=== PATIENT | female | born 1960 | race Caucasian/White ===

== ENCOUNTER 2018-01-31 19:31 | Emergency (ER) | payer OTHER ==
[2018-01-31 19:45] VITALS: BP 162/90
== END 2018-01-31 22:10 | disposition left against medical advice (07) ==
LOC: ER 19:31
DX: Z53.21 Procedure and treatment not carried out due to patient leaving prior to being seen by health care provider (principal)
CPT/HCPCS: L0120

== ENCOUNTER 2018-02-01 10:14 | Emergency (ER) | payer OTHER, MEDICAID ==
[2018-02-01] MEDS ORDERED: ACETAMINOPHEN 325 MG TABLET PO ONE (10:30)
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
[2018-02-01] MEDS ORDERED: DEXAMETHASONE SOD PHOS INJ 10 MG/1 ML VIAL IM ONE (12:06)
[2018-02-01] MEDS ORDERED: KETOROLAC TROMETHAMINE 60 MG/2 ML SDV IM ONE (12:06)
[2018-02-01 12:42] VITALS: BP 120/63
== END 2018-02-01 12:42 | disposition home or self-care (01) ==
LOC: ER 10:14
DX: S80.02XA Contusion of left knee, initial encounter (principal); M54.2 Cervicalgia; M25.512 Pain in left shoulder; M25.562 Pain in left knee; V49.40XA Driver injured in collision with unspecified motor vehicles in traffic accident, initial encounter; M54.9 Dorsalgia, unspecified; G89.29 Other chronic pain; I10 Essential (primary) hypertension; J44.9 Chronic obstructive pulmonary disease, unspecified; F17.210 Nicotine dependence, cigarettes, uncomplicated; Z88.0 Allergy status to penicillin; Z88.5 Allergy status to narcotic agent; F17.200 Nicotine dependence, unspecified, uncomplicated; R20.2 Paresthesia of skin
CPT/HCPCS: 99283; 96372; 72050; 73564; 72110; 73030; 72070; J1885; J1100

== ENCOUNTER 2018-03-12 12:51 | Emergency (ER) | payer MEDICAID, OTHER ==
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
--- NOTE | 2018-03-12 14:18 | ER Document Report ---
HPI - HPI Pain Level: 3 Notes: Patient is a 57-year-old female who presents to the ED complaining of left dorsal foot pain status post crush injury prior to arrival. Patient states that she was moving furniture when a drawer came out and fell on her foot. Patient states that she is still able to limp and has not noticed any obvious bruising or swelling. She has no other concerns or complaints at this time. The pain does not radiate. Denies any headache, fever, URI, sore throat, chest pain, palpitations, syncope, cough, shortness of breath, wheeze, dyspnea, abdominal pain, nausea/vomiting/diarrhea, urinary retention, dysuria, hematuria , numbness/tingling, muscle paralysis/weakness, or rash. - ROS Systems Reviewed and Negative: Yes All other systems reviewed and negative - REPRODUCTIVE Reproductive: DENIES: : Past Medical History - Social History Smoking Status: Never Smoker Family History: None Pulmonary Medical History: Reports: Hx Asthma, Hx COPD Endocrine Medical History: Reports: Hx Hypothyroidism Renal/ Medical History: Denies: Hx Peritoneal Dialysis GI Medical History: Reports: Hx Gastroesophageal Reflux Disease Musculoskeletal Medical History: Reports Hx Arthritis, Reports Hx Musculoskeletal Deformity Psychiatric Medical History: Reports: Hx Depression Past Surgical History: Reports: Hx Cholecystectomy, Hx Hysterectomy, Hx Orthopedic Surgery - Finger - Immunizations Hx Diphtheria, Pertussis, Tetanus Vaccination: Yes Vertical Provider Document - CONSTITUTIONAL Agree With Documented VS: Yes Notes: PHYSICAL EXAMINATION: GENERAL: Well-appearing, well-nourished and in no acute distress. LUNGS: Breath sounds clear to auscultation bilaterally and equal. No wheezes rales or rhonchi. HEART: Regular rate and rhythm without murmurs, rubs, gallops. Musculoskeletal: Lt foot/ankle: FROM to passive/active. Strength 5+/5. N/V intact distal. + tenderness to the dorsal foot, generalized. No ecchymosis, erythema, warmth, or deformity. Achilles intact. Extremities: No cyanosis, clubbing, or edema b/l. Peripheral pulses 2+. Capillary refill less than 3 seconds. NEUROLOGICAL: Normal speech, limping gait. Normal sensory, motor exams PSYCH: Normal mood, normal affect. SKIN: Warm, Dry, normal turgor, no rashes or lesions noted. - INFECTION CONTROL TRAVEL OUTSIDE OF THE [place] IN LAST 30 DAYS: No Course - Re-evaluation Re-evalutation: 03/12/18 14:17 Patient is an afebrile, well-hydrated, 57-year-old female who presents to the ED with left foot pain which I suspect to be a contusion. Vitals are acceptable without any significant tachycardia, tachypnea, or hypoxia. PE is otherwise unremarkable for any neurovascular compromise, obvious tendon/ ligament rupture, obvious fracture/dislocation, septic joint. X-ray was unremarkable for any acute pathology. Post-op shoe provided. Pt declined crutches. Patient is nontoxic-appearing. Patient is able to ambulate and weight-bear although she is limping. No other labs or imaging warranted at this time based on H&P. Conservative measures otherwise for symptoms. Recheck with your PCM in 3-5 days. Consider consult orthopedics. Return to the ED with any worsening/concerning symptoms otherwise as reviewed in discharge. Patient is in agreement. - Vital Signs Vital signs: Temp Pulse Resp BP Pulse Ox 97.7 F 77 16 121/63 95 03/12/18 13:08 03/12/18 13:08 03/12/18 13:08 03/12/18 13:08 03/12/18 13:08 Discharge - Discharge Clinical Impression: Left foot pain Condition: Stable Disposition: HOME, SELF-CARE Additional Instructions: Rest, Ice, Compression, Elevation Tylenol/ibuprofen as needed Light stretches daily Strength exercises as able Moist heat and massage may help F/u with your PCP in 3-5 days for a recheck Consider consult(s) with Orthopedics/physical therapy for ongoing/worsening symptoms Return to the ED with any worsening symptoms and/or development of fever, headache, chest pain, palpitations, syncope, shortness of breath, trouble breathing, abdominal pain, n/v/d, muscle weakness/paralysis, numbness/tingling, swelling, redness, or other worsening symptoms that are concerning to you. Referrals: NESS SAMANIEGO MD [Primary Care Provider] - Follow up as needed [facility] [Provider Group] - Follow up as needed
[2018-03-12 15:05] VITALS: BP 128/69
== END 2018-03-12 15:28 | disposition home or self-care (01) ==
LOC: ER 12:51
DX: M79.672 Pain in left foot (principal)
CPT/HCPCS: 99283